=== PATIENT | male | born 1980 | race Caucasian/White ===

== ENCOUNTER 2023-05-29 18:02 | Emergency (ER) | payer OTHER ==
[~2023-05-29] VITALS: Ht 172.7 cm; Wt 65.8 kg
[2023-05-29 22:30] VITALS: BP 108/77
== END 2023-05-29 22:32 | disposition home or self-care (01) ==
LOC: ED 18:02
DX: S61.215A Laceration without foreign body of left ring finger without damage to nail, initial encounter (principal); S61.217A Laceration without foreign body of left little finger without damage to nail, initial encounter; W27.0XXA Contact with workbench tool, initial encounter
CPT/HCPCS: 73130; 73140

== ENCOUNTER 2024-07-03 07:27 | Day surgery (SDC) | payer OTHER ==
[2024-07-02 10:12] VITALS: BP 120/75
[~2024-07-03] VITALS: Ht 172.7 cm; Wt 63.6 kg
[~2024-07-03 07:27] MED LIST: CEFAZOLIN SODIUM 1 GM/10 ML SYR IV SCH; DICLOFENAC SODI75 MG PO; DOXYCYCLINE HY100 MG PO; GABAPENTIN300 MG PO; IBLOOD GLUCOSE TEST STRIP 1 EA TEST VI PRN; LACTATED RINGER'S 1,000 ML IV SCH; LIDOCAINE HCL 1% 5 ML SDV INJ ONE
[2024-07-03 07:44] VITALS: BP 140/78
--- NOTE | 2024-07-03 08:51 | NUR ---
PT UPDATED ON SURGERY WAIT TIME. NO OTHER NEEDS AT THIS TIME. CALL LIGHT WITHIN REACH.
[2024-07-03] MEDS ORDERED: DEXAMETHASONE SOD PHOS 4 MG/ML VIAL ONE ×2 (08:59→11:42)
[2024-07-03] MEDS ORDERED: Ropivacaine HCl 0.5% 30 ML VIAL ONE (08:59)
[2024-07-03] MEDS ORDERED: propofoL 200 MG/20 ML VIAL ONE ×5 (08:59→11:30)
[2024-07-03] MEDS ORDERED: LIDOCAINE HCL 2% 20 MG/ML VIAL INJ ONE (09:01)
[2024-07-03] MEDS ORDERED: MIDAZOLAM HCL 2 MG/2 ML VIAL ONE (09:01)
[2024-07-03] MEDS ORDERED: droPERidol 5 MG/2 ML VIAL IV PRN (10:15)
[2024-07-03] MEDS ORDERED: ondansetron HCL 4 MG/2 ML VIAL IV PRN (10:15)
[2024-07-03] MEDS ORDERED: NALOXONE HCL 0.4 MG SYR IV PRN (10:15)
[2024-07-03] MEDS ORDERED: PROCHLORPERAZINE EDISYLATE 10 MG/2 ML VIAL IV PRN (10:15)
[2024-07-03] MEDS ORDERED: HYDROmorphone HCL 1 MG/ML SYR IV PRN (10:15)
[2024-07-03] MEDS ORDERED: IBLOOD GLUCOSE TEST STRIP 1 EA TEST VI PRN (10:15)
[2024-07-03] MEDS ORDERED: fentaNYL citrate 50 MCG/ML SDV IV PRN (10:15)
[2024-07-03] MEDS ORDERED: LACTATED RINGER'S 1,000 ML IV ONE (10:26)
--- NOTE | 2024-07-03 12:43 | NUR ---
07/03/24 1243 Puja Barnett 1216- PT PRESENTS TO PACU, SEMI BRAND POSITION. DROWSY BUT EYES OPEN, REORIENTED TO TIME AND PLACE. UNABLE TO ANSWER QUESTIONS AT THIS TIME. BREATHING EVEN AND NON LABORED ON 6L O2 PER MASK, ABD SOFT, NON DISTENDED. LEFT FOOT DRESSING IN PLACE AND ELEVATED ON PILLOW. ALL MONITORS IN PLACE, LR INFUSING TO RH IV. 1219- PT DENIES PAIN AND NAUSEA. LEFT FOOT NUMB TO TOUCH, UNABLE TO MOVE TOES BUT ABLE TO ROTATE LEG SIDE TO SIDE AND BEND KNEE BUT NOT HOLD. PT MOVED TO ROOM AIR AT THIS TIME AND REPORTS NEEDING TO VOID. 1222- DR VELEZ AT BEDSIDE TO DISCUSS CASE, PT VERBALIZED UNDERSTANDING. 1224- PT URINATED 425 ML CLEAR YELLOW URINE USING URINAL IN BED. 1235- PT RESTING INTERMITTENTLY, NO SIGNS OF DISTRESS.
[2024-07-03 13:04] VITALS: BP 130/90
--- NOTE | 2024-07-05 09:34 | OR ---
[facility] [address] [place], [place] [address] Signed DATE OF OPERATION: 07/03/2024 SURGEON: Addis Gregorio DPM PREOPERATIVE DIAGNOSES: 1. Bunion deformity or hallux abductovalgus, left foot. 2. Hammertoe deformity, left second digit. 3. Tight extensor tendon or contracture of foot muscle, left second digit. POSTOPERATIVE DIAGNOSIS: 1. Bunion deformity or hallux abductovalgus, left foot. 2. Hammertoe deformity, left second digit. 3. Tight extensor tendon or contracture of foot muscle, left second digit. PROCEDURES: 1. Lapidus bunionectomy, left foot. 2. Hammertoe PIPJ arthrodesis. 3. Extensor tendon to the left second digit tenotomy. [employer] SUPERVISOR: Balta Ortega DPM. ANESTHESIA PROVIDER: Milo Villa. ANESTHESIA: Regional popliteal block with MAC ESTIMATED BLOOD LOSS: Less than 5 mL or minimal. HEMOSTASIS: With an ankle tourniquet. MATERIALS USED: We had a 3-0 Vicryl, 4-0 Vicryl, 5-0 nylon and then we had locking plate with screws from [employer] then also we had a hammertoe implant at the PIPJ also from [employer]. PROCEDURE IN DETAIL: The patient was brought into the operating room and placed up on the operating table in PATIENT NAME: ANDI SAPP OPERATIVE REPORT DATE OF : 78 REPORT #: [id number] PHYSICIAN: ADDIS GREGORIO DPM PCP: NO PRIMARY CARE PHYSICIAN REPORT IS CONFIDENTIAL AND NOT TO BE RELEASED WITHOUT AUTHORIZATION [facility] [address] [place], [place] [address] Signed the supine position. The left foot was then scrubbed, prepped and draped in usual sterile technique. An Esmarch bandage was then utilized to exsanguinate the patient's left foot and then the Esmarch was left wrapped around the ankle to act as tourniquet. Attention was then directed to the dorsal aspect of the patient's left first metatarsophalangeal joint where approximately 5 cm linear incision was performed both parallel and medial to the tendon of the extensor hallucis longus. #15 blade was utilized to perform the initial skin incision. #64 blade was then utilized to perform deeper dissection down to joint capsule. Small bleeders were cauterized with electrocautery. Care was being taken to identify and retract vital neurovascular structures. At this time, a linear capsulotomy was performed with #64 blade and joint capsule was reflected up the medial aspect of the first metatarsal revealing bony eminence. Upon reflection of the joint capsule, there was a small what appear to be powdery zohreh type substance consistent with small amount of gouty tophi, portion of this was excised and sent in saline for pathological review. Observation of the joint and the bone was performed at this time as well and there was also bone discoloration to the bone itself. Sagittal saw was utilized to resect off the medial eminence of the first metatarsal head and then the medial eminence was sent to pathology for pathological review. The extensor brevis tendon was identified and the soft tissue release was performed by performing tenotomy on the extensor brevis tendon. Next, the radial skin incision was extended proximally over the first metatarsocuneiform joint region. The soft tissue was dissected down at the level of this joint. Venous structures were cauterized or tied with 4-0 Vicryl as necessary. A capsulotomy was performed utilizing #64 blade. Soft tissue structures around the joint capsule were released. Soft tissue at the base of the first metatarsal and on the cuneiform was also released for hardware placement. Joint distractor was then applied with K-wires, thus exposing the articular surface. Brown discoloration of the bone was also observed in this region. A sagittal saw was utilized to resect the articular surface of the joint. Also, curette was utilized to remove any remaining articular cartilage around the periphery of the joint themselves. The joint surface was then fenestrated with a small drill to allow for bleeding and for complete bone effusion to occur in the future. The area was flushed with copious amounts of sterile normal saline. The bone and joint distractor was released in approximation of the first metatarsocuneiform joint was realigned into a more corrected position. K-wire fixation was driven from distal to proximal across the first metatarsocuneiform joint region for to act as temporary fixation. Two more K-wires were then driven perpendicular in a transverse plane from medial to lateral from the first metatarsal into the second metatarsal, again to act as temporary fixation. Intraoperative x-ray verified position of the correction. A plate was selected along with proper positioning. The distal locking screws were then placed into the metatarsal base following standard AO fixation techniques. Compression screw was then applied through the center hole in the plate through the first cuneiform and then to the second cuneiform. The cross wires that were acting as temporary fixation were released and good compression was observed across the cuneiform compression screw PATIENT NAME: ANDI SAPP OPERATIVE REPORT DATE OF : 78 REPORT #: [id number] PHYSICIAN: ADDIS GREGORIO DPM PCP: NO PRIMARY CARE PHYSICIAN REPORT IS CONFIDENTIAL AND NOT TO BE RELEASED WITHOUT AUTHORIZATION [facility] [address] [place], [place] [address] Signed placement. Two screws were then placed proximally in the locking plate. Two locking screws were utilized and the remaining K-wire was removed. Again, position was verified through an intraoperative fluoroscopy and good correction was observed and good sesamoid position. Attention was then directed to the second digit at the mid metatarsal level small incision was performed with #15 blade adjacent to the extensor tendon, #64 blade was then inserted and the extensor tendon released. At the metatarsophalangeal joint of the left second digit another small incision was performed. #64 blade was introduced and the dorsal joint capsule was released from medial to lateral. Second digit was then easily manipulated back into a more corrected position. Attention was then directed to the PIPJ of the left second digit where two semi-elliptical converging incision were performed approximately 12 mm in length, thus creating a skin island over this joint region. Skin island was excised utilizing forceps and #15 blade. A #64 blade was then utilized to perform a tenotomy and capsulotomy down into the PIPJ and the joint capsule was reflected proximally thus exposing the head of the proximal phalanx at the surgical site. A sagittal saw was then utilized to resect the head of the proximal phalanx. The sagittal saw was also utilized to resect the articular cartilage and at the base of the middle phalanx. Small curette was utilized to make sure edges of the articular surface were denuded of articular cartilage. The area was then flushed and drill was then utilized to create a aerial applicator pilot hole into the proximal phalanx and also base of the middle phalanx and a straight hammertoe implant that access the was then placed into the proximal phalanx and then the base of the middle phalanx was impacted upon it. Correction of the hammertoe deformity was observed, good approximation of the bone was also observed. Next, 3-0 Vicryl was utilized to reapproximate the extensor tendon on the hammertoe deformity as well as the deep soft tissue including capsule on the bunion surgical correction site. 4-0 Vicryl was then utilized to reapproximate and coapt integument on the bunion surgical site and 5-0 nylon was utilized to reapproximate and coapt integument on both the hammertoe correction, the tendon release and the bunion deformity correction. Betadine, Adaptic and soaked gauze were then applied along with a gauze and a Coban wrap. Ankle tourniquet was removed and prompt hyperemic response was noted to all digits of the patient's left foot. Postoperative injection consisting of 5 mL of 0.5% ropivacaine and 1 mL of dexamethasone phosphate was applied about the surgical site areas prior to dressing the foot. The patient was then escorted to the recovery area by Anesthesia. The patient had tolerated both the procedure and the anesthesia well and following the period of postoperative monitoring, the patient was discharged to home with both oral and written instructions. Addis Gregorio DPM PATIENT NAME: ANDI SAPP OPERATIVE REPORT DATE OF : 78 REPORT #: [id number] PHYSICIAN: ADDIS GREGORIO DPM PCP: NO PRIMARY CARE PHYSICIAN REPORT IS CONFIDENTIAL AND NOT TO BE RELEASED WITHOUT AUTHORIZATION [address] [address] Signed [facility] /[id number] Copies: ~ PATIENT NAME: ANDI SAPP KADE OPERATIVE REPORT DATE OF : 78 REPORT #: [id number] PHYSICIAN: ADDIS GREGORIO DPM PCP: NO PRIMARY CARE PHYSICIAN REPORT IS CONFIDENTIAL AND NOT TO BE RELEASED WITHOUT AUTHORIZATION
--- NOTE | 2024-07-05 09:58 | PATH ---
[facility] [address], [place] [address] Signed SPECIMEN(S): A LEFT FOOT GOUT CRYSTALS SPECIMEN(S): B MEDIAL LEFT 1ST METATARSAL HEAD SPECIMEN SOURCE: A. LEFT FOOT GOUT CRYSTALS B. MEDIAL LEFT 1ST METATARSAL HEAD CLINICAL HISTORY: Left Lapidus bunion, mered[place]toe FINAL PATHOLOGIC DIAGNOSIS: A. Left foot gout crystals: - Fragment of soft tissue with monosodium urate crystals, consistent with gout B. Medial left first metatarsal head: - Fragment of bone and cartilage with no significant pathologic changes BRP MICROSCOPIC EXAMINATION: Histologic sections of all submitted blocks are examined by light microscopy. These findings, together with the gross examination, support the pathologic diagnosis. GROSS DESCRIPTION: A. The specimen, labeled and designated "Jakub, left foot gout crystals," is received In saline and consists of chalky white soft tissue fragment that measures 0.6 x 0.2 x 0.1 cm. Specimen is submitted in 100% alcohol in (A1). B. The specimen, labeled and designated "Jakub, medial left first metatarsal head," is received in formalin and consists of bone tissue fragment that measure 1.7 x 1.7 x 0.2 cm. The bone is covered with pink-yancey, roughed cartilage. Sectioning through the bone is grossly unremarkable. Specimen is left for decalcification in decal stat prior processing. Youth Counselor sections are submitted in (B1). JS (under the direct supervision of a pathologist) The Gross Description was prepared using a voice recognition system. The report was reviewed for accuracy; however, sound-alike word errors, addition and/or deletions may occur. If there is any question about this report, please contact Client Services. ADDITIONAL NOTES: PATIENT NAME: ANDI SAPP PATHOLOGY DATE OF : 78 REPORT #: [id number] PHYSICIAN: VIRIDIANA PATHOLOGY PCP: NO PRIMARY CARE PHYSICIAN REPORT IS CONFIDENTIAL AND NOT TO BE RELEASED WITHOUT AUTHORIZATION [facility] [address] [place], [place] [address] Signed Immunohistochemical and/or in situ hybridization studies if performed in this case included appropriate positive controls that reacted as expected. This test was developed and its performance characteristics determined by [facility]. It has not been cleared or approved by the U.S. Food and Drug Administration. The FDA has determined that such clearance or approval is not necessary. This test is used for clinical purposes. It should not be regarded as investigational or for research. [facility] is certified under the Clinical Laboratory Improvement Amendments of 1988 (CLIA) as qualified to perform high complexity clinical laboratory testing. PERFORMING LABORATORY: Technical component was performed by [facility], [address] [place] [address] (CLIA# [id number]). Professional interpretation was performed by [facility], [address] [place] [address] (CLIA#: [id number]). Diagnostician: Yuri Nelson MD Pathologist Electronically Signed 07/05/2024 Copies: ~ PATIENT NAME: ANDI SAPP PATHOLOGY DATE OF : 78 REPORT #: [id number] PHYSICIAN: VIRIDIANA PATHOLOGY PCP: NO PRIMARY CARE PHYSICIAN REPORT IS CONFIDENTIAL AND NOT TO BE RELEASED WITHOUT AUTHORIZATION
== END 2024-07-03 13:16 | disposition home or self-care (01) ==
LOC: DS 07:27
PROVIDERS: ATTEND Podiatrist Foot & Ankle Surgery
PROC: 0QBP0ZZ Excision of Left Metatarsal, Open Approach (ICD-10-PCS; principal; 2024-07-03 09:00)
PROC: 0SGQ0JZ Fusion of Left Toe Phalangeal Joint with Synthetic Substitute, Open Approach (ICD-10-PCS; 2024-07-03 09:00)
PROC: 0LNW0ZZ Release Left Foot Tendon, Open Approach (ICD-10-PCS; 2024-07-03 09:00)
DX: M21.612 Bunion of left foot (principal); M20.12 Hallux valgus (acquired), left foot; M20.42 Other hammer toe(s) (acquired), left foot; M62.472 Contracture of muscle, left ankle and foot; M10.9 Gout, unspecified
CPT/HCPCS: 01470; 64445; 73620; 73630; C1713; J1100; J2250; J2704; J2795; J7121